=== PATIENT | male | born 1985 | race Caucasian/White ===

== ENCOUNTER 2019-08-01 21:53 | Emergency (ER) | payer OTHER, SELFPAY ==
[2019-08-01] MEDS ORDERED: LORazepam 2 MG/ML VIAL ONE (22:20)
--- NOTE | 2019-08-01 23:48 | ER ---
Nurse's Notes [facility] Name: Fahad Tenorio Age: 33 yrs Sex: Male : 1985 Arrival Date: 08/01/2019 Time: 21:56 Bed 13 Private MD: Diagnosis: Panic disorder [episodic paroxysmal anxiety] without agoraphobia Presentation: 08/01 22:14 Presenting complaint: Patient states: he is having symptoms like a panic attack but bb much worse this time his face feels like it is burning up but he is freezing cold, he has to concentrated to make himself breath, his tongue is numb. Transition of care: patient was not received from another setting of care. Onset of symptoms was August 01, 2019. Risk Assessment: Do you want to hurt yourself or someone else? Patient reports no desire to harm self or others. Initial Sepsis Screen: Does the patient meet any 2 criteria? No. Patient's initial sepsis screen is negative. Does the patient have a suspected source of infection? No. Patient's initial sepsis screen is negative. Care prior to arrival: None. 22:14 Method Of Arrival: Ambulatory bb 22:14 Acuity: JONATHAN 4 bb Historical: - Allergies: 22:17 No Known Allergies; bb - Home Meds: 22:17 Xanax Oral [Active]; Prilosec Oral [Active]; bb - PMHx: 22:17 Anxiety; GERD; bb - PSHx: 22:17 bilateral breast reduction; bb - Immunization history:: Adult Immunizations up to date. - Social history:: Smoking status: Patient uses tobacco products, smokes one pack cigarettes per day. Patient uses alcohol, on a daily basis. Patient/guardian denies using street drugs. - Ebola Screening: : No symptoms or risks identified at this time. Screenin:05 Abuse screen:. Nutritional screening: No deficits noted. Tuberculosis screening: No aa1 symptoms or risk factors identified. Fall Risk None identified. Assessment: 22:05 General: Appears in no apparent distress. comfortable, Behavior is calm, cooperative, aa1 appropriate for age. Pain: Denies pain. Neuro: Level of Consciousness is awake, alert, obeys commands, Oriented to person, place, time, situation, Moves all extremities. Full function Gait is steady, Speech is normal. Neuro: Reports numbness in lips. Cardiovascular: Heart tones S1 S2 present Rhythm is regular. Respiratory: Airway is patent Respiratory effort is even, unlabored, Respiratory pattern is regular, symmetrical. GI: No signs and/or symptoms were reported involving the gastrointestinal system. : No signs and/or symptoms were reported regarding the genitourinary system. EENT: No signs and/or symptoms were reported regarding the EENT system. Derm: Skin is intact, is healthy with good turgor, Skin is pink, warm \T\ dry. Musculoskeletal: Circulation, motion, and sensation intact. Capillary refill < 3 seconds. 23:58 Reassessment: Patient appears in no apparent distress at this time. Patient is alert, aa1 oriented x 3, equal unlabored respirations, skin warm/dry/pink. Discussed d/c \T\ f/u instructions with pt; denies questions or concerns at this time. Ambulatory to lobby with steady gait Patient denies pain at this time. Patient states feeling better. Patient states symptoms have improved. Vital Signs: 22:07 BP 149 / 100; Pulse 124; Resp 14; Temp 98.1(O); Pulse Ox 97% ; lt1 22:47 BP 129 / 84; Pulse 103; Resp 14; Pulse Ox 95% on R/A; Pain 0/10; aa1 23:58 BP 140 / 82; Pulse 98; Resp 16; Pulse Ox 96% on R/A; Pain 0/10; aa1 ED Course: 21:56 Patient arrived in ED. cf2 22:03 Neva Boogie, RN is Primary Nurse. aa1 22:05 Patient has correct armband on for positive identification. Bed in low position. Call aa1 light in reach. Pulse ox on. NIBP on. 22:13 Doe Hay PA is PHCP. jr8 22:13 Mathew Licea MD is Attending Physician. jr8 22:15 EKG done, by ED staff, reviewed by Doe DE LA TORRE. aa1 22:16 Triage completed. bb 22:17 Arm band placed on Patient placed in an exam room, on a stretcher, on pulse oximetry. bb 23:58 No provider procedures requiring assistance completed. Patient did not have IV access aa1 during this emergency room visit. 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 liz 23:58 Discharged to home ambulatory. aa1 23:58 Condition: good 23:58 Discharge instructions given to patient, Instructed on discharge instructions, follow up and referral plans. medication usage, Demonstrated understanding of instructions, follow-up care, medications, Prescriptions given X 1. 08/02 00:01 Patient left the ED. aa1 Signatures: Neva Boogie RN RN aa1 Kalyn Hernandez RN RN bb Roszak, Josh, PA PA jr8 Radha Cunningham 1 Enrique Cohen 2
--- NOTE | 2019-08-01 23:48 | EDPHYS ---
Physician Documentation [facility] Name: Fahad Tenorio Age: 33 yrs Sex: Male : 1985 Arrival Date: 08/01/2019 Time: 21:56 Bed 13 Private MD: ED Physician Mathew Licea HPI: 08/01 23:50 This 33 yrs old Male presents to ER via Ambulatory with complaints of jr8 Numbness Of Mouth, Possible Panick attack, Metal taste in mouth. 23:50 The patient presents to the emergency department with anxiety. Onset: The jr8 symptoms/episode began/occurred acutely, today. Past psychiatric history: Prior diagnosis: anxiety, Psychiatric medications include: Xanax. Associated signs and symptoms: The patient has no apparent associated signs or symptoms. Severity of symptoms: At their worst the symptoms were moderate in the emergency department the symptoms are unchanged. The patient has experienced similar episodes in the past, multiple times, chronically. The patient has not recently seen a physician. Patient stated that he use to chronically use marajuana. Stated that he stopped several years ago but developed panic attacks shortly after. Since then has had chronic anxiety and panic attacks. Self medicates with alcohol and occasionally xanax that is prescribed to him. Stated that he got one tonight that was a lot worse then normal. Took a total of 2 mg of xanax. Feeling better now but wanted to make sure he was ok . Historical: - Allergies: 22:17 No Known Allergies; bb - Home Meds: 22:17 Xanax Oral [Active]; Prilosec Oral [Active]; bb - PMHx: 22:17 Anxiety; GERD; bb - PSHx: 22:17 bilateral breast reduction; bb - Immunization history:: Adult Immunizations up to date. - Social history:: Smoking status: Patient uses tobacco products, smokes one pack cigarettes per day. Patient uses alcohol, on a daily basis. Patient/guardian denies using street drugs. - Ebola Screening: : No symptoms or risks identified at this time. ROS: 23:50 Eyes: Negative for injury, pain, redness, and discharge, ENT: Negative for injury, jr8 pain, and discharge, Neck: Negative for injury, pain, and swelling, Cardiovascular: Negative for chest pain, palpitations, and edema, Respiratory: Negative for shortness of breath, cough, wheezing, and pleuritic chest pain, Abdomen/GI: Negative for abdominal pain, nausea, vomiting, diarrhea, and constipation, Back: Negative for injury and pain, MS/Extremity: Negative for injury and deformity, Skin: Negative for injury, rash, and discoloration, Neuro: Negative for headache, weakness, numbness, tingling, and seizure. 23:50 Psych: Positive for anxiety. Exam: 23:50 Eyes: Pupils equal round and reactive to light, extra-ocular motions intact. Lids and jr8 lashes normal. Conjunctiva and sclera are non-icteric and not injected. Cornea within normal limits. Periorbital areas with no swelling, redness, or edema. ENT: Nares patent. No nasal discharge, no septal abnormalities noted. Tympanic membranes are normal and external auditory canals are clear. Oropharynx with no redness, swelling, or masses, exudates, or evidence of obstruction, uvula midline. Mucous membranes moist. Neck: Trachea midline, no thyromegaly or masses palpated, and no cervical lymphadenopathy. Supple, full range of motion without nuchal rigidity, or vertebral point tenderness. No Meningismus. Cardiovascular: Sinus tachycardia with a normal rhythm with a normal S1 and S2. No gallops, murmurs, or rubs. Normal PMI, no JVD. No pulse deficits. Respiratory: Lungs have equal breath sounds bilaterally, clear to auscultation and percussion. No rales, rhonchi or wheezes noted. No increased work of breathing, no retractions or nasal flaring. Abdomen/GI: Soft, non-tender, with normal bowel sounds. No distension or tympany. No guarding or rebound. No evidence of tenderness throughout. Back: No spinal tenderness. No costovertebral tenderness. Full range of motion. Skin: Warm, dry with normal turgor. Normal color with no rashes, no lesions, and no evidence of cellulitis. MS/ Extremity: Pulses equal, no cyanosis. Neurovascular intact. Full, normal range of motion. Neuro: Awake and alert, GCS 15, oriented to person, place, time, and situation. Cranial nerves II-XII grossly intact. Motor strength 5/5 in all extremities. Sensory grossly intact. Cerebellar exam normal. Normal gait. Psych: Awake, alert, with orientation to person, place and time. Behavior, mood, and affect are within normal limits. Vital Signs: 22:07 BP 149 / 100; Pulse 124; Resp 14; Temp 98.1(O); Pulse Ox 97% ; lt1 22:47 BP 129 / 84; Pulse 103; Resp 14; Pulse Ox 95% on R/A; Pain 0/10; aa1 23:58 BP 140 / 82; Pulse 98; Resp 16; Pulse Ox 96% on R/A; Pain 0/10; aa1 MDM: 22:14 Patient medically screened. jr8 23:46 Data reviewed: vital signs, nurses notes, EKG, and as a result, I will discharge jr8 patient. Data interpreted: Pulse oximetry: on room air is 95 %. Interpretation: normal. Counseling: I had a detailed discussion with the patient and/or guardian regarding: the historical points, exam findings, and any diagnostic results supporting the discharge/admit diagnosis, the need for outpatient follow up, a family practitioner, to return to the emergency department if symptoms worsen or persist or if there are any questions or concerns that arise at home. Response to treatment: the patient's symptoms have resolved after treatment. 23:46 ED course: Patient feeling much better after resting. Wants to start on new more long jr8 term medicine and would f/u with PCP . 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 Disposition: 08/01/19 23:47 Discharged to Home. Impression: Panic disorder [episodic paroxysmal anxiety] without agoraphobia. - Condition is Stable. - Discharge Instructions: Panic Attacks. - Prescriptions for Effexor XR 75 mg Oral capsule,extended release 24hr - take 1 capsule by ORAL route once daily for 7 days then increase to one capsule twice a day; 30 capsule. - Medication Reconciliation Form, Thank You Letter, Antibiotic Education, Prescription Opioid Use form. - Follow up: Private Physician; When: 2 - 3 days; Reason: Recheck today's complaints, Continuance of care, Re-evaluation by your physician. - Problem is new. - Symptoms are resolved. Signatures: Neva Boogie RN RN aa1 Kalyn Hernandez RN RN Doe Bright PA PA jr8 Mathew Licea MD MD tw4 Corrections: (The following items were deleted from the chart) 00:01 08/01 23:47 08/01/2019 23:47 Discharged to Home. Impression: Panic disorder [episodic aa1 paroxysmal anxiety] without agoraphobia. Condition is Stable. Forms are Medication Reconciliation Form, Thank You Letter, Antibiotic Education, Prescription Opioid Use. Follow up: Private Physician; When: 2 - 3 days; Reason: Recheck today's complaints, Continuance of care, Re-evaluation by your physician. Problem is new. Symptoms are resolved. jr8
[2019-08-02 02:16] VITALS: TEMP 98.1
[2019-08-02 02:19] VITALS: BP 140/82; O2SAT 96
--- OUTSIDE RECORDS SUMMARY | 2019-08-02 07:22 | XMS REPORT ---
:1985 [facility] Address [address] [place] [address] Dr. Nath [address] [place] [id number] Care Team Providers Name Role Phone Unavailable Unavailable Unavailable Problems This patient has no known problems. Allergies, Adverse Reactions, Alerts This patient has no known allergies or adverse reactions. Medications This patient has no known medications.
--- NOTE | 2019-08-02 15:55 | EKG ---
Test Date: 2019-08-01 Test Time: 22:22:19 Instant Potato Processing Supervisor: MAISHA MEASUREMENT RESULTS: Intervals: Rate: 109 TX: 140 QRSD: 80 QT: 312 QTc: 420 Benton: P: 63 TX: 140 QRS: 88 T: 41 INTERPRETIVE STATEMENTS: Sinus tachycardia Otherwise normal ECG Compared to ECG 02/06/2012 01:32:34 No significant changes Electronically Signed On 08-02-19 15:54:24 PET CARE TECHNICIAN by Darren English
== END 2019-08-02 00:01 | disposition home or self-care (01) ==
LOC: ER 21:53
DX: F41.0 Panic disorder [episodic paroxysmal anxiety] (principal); K21.9 Gastro-esophageal reflux disease without esophagitis; F17.210 Nicotine dependence, cigarettes, uncomplicated
CPT/HCPCS: 93005; 99283

== ENCOUNTER 2019-10-21 17:21 | Emergency (ER) | payer SELFPAY ==
--- OUTSIDE RECORDS SUMMARY | 2019-10-21 17:23 | XMS REPORT ---
:1985 [facility] Address [address] [place] [address] Dr. Nath [address] [place] [id number] Care Team Providers Name Role Phone Unavailable Unavailable Unavailable Problems This patient has no known problems. Allergies, Adverse Reactions, Alerts This patient has no known allergies or adverse reactions. Medications This patient has no known medications.
--- NOTE | 2019-10-21 18:44 | EDPHYS ---
Physician Documentation [facility] Name: Fahad Tenorio Age: 34 yrs Sex: Male : 1985 Arrival Date: 10/21/2019 Time: 17:22 Bed 28 Private MD: ED Physician Cordell Lance HPI: 10/21 18:38 This 34 yrs old Male presents to ER via Ambulatory with complaints of Finger la1 Injury. 18:38 This 34 yrs old Male presents to ER via Ambulatory with complaints of Finger la1 Injury. 18:38 The patient or guardian reports subungal hematoma. The complaints affect the right la1 middle fingernail. Context: resulted from a crush injury, by a house door. Onset: The symptoms/episode began/occurred last night. Modifying factors: The symptoms are alleviated by nothing, the symptoms are aggravated by nothing. Associated signs and symptoms: The patient has no apparent associated signs or symptoms. Severity of symptoms: At their worst the symptoms were mild. The patient has not experienced similar symptoms in the past. Historical: - Allergies: 17:36 No Known Allergies; ca1 - PMHx: 17:36 Anxiety; GERD; ca1 - PSHx: 17:36 bilateral breast reduction - Tumors removed; ca1 - Immunization history:: Adult Immunizations up to date, Last tetanus immunization: unknown, Flu vaccine is not up to date. Patient has never been vaccinated. Flu vaccine is not up to date. Patient has never been vaccinated. - Coronavirus screen:: The patient has NOT traveled to [place], [place], or [place] in the past 14 days. The patient has NOT had contact with known/suspected case of Coronavirus?. - Social history:: Smoking status: Patient reports the use of cigarette tobacco products, smokes two packs cigarettes per day. Smoking status: Patient reports the use of cigarette tobacco products, smokes one-half pack cigarettes per day, smokes one pack cigarettes per day. - Ebola Screening: : Patient negative for fever greater than or equal to 101.5 degrees Fahrenheit, and additional compatible Ebola Virus Disease symptoms Patient denies exposure to infectious person Patient denies travel to an Ebola-affected area in the 21 days before illness onset No symptoms or risks identified at this time. ROS: 18:39 Constitutional: Negative for fever, chills, and weight loss, Eyes: Negative for injury, la1 pain, redness, and discharge, ENT: Negative for injury, pain, and discharge, Neck: Negative for injury, pain, and swelling, Cardiovascular: Negative for chest pain, palpitations, and edema, Respiratory: Negative for shortness of breath, cough, wheezing, and pleuritic chest pain, Abdomen/GI: Negative for abdominal pain, nausea, vomiting, diarrhea, and constipation, Back: Negative for injury and pain, MS/Extremity: + for pain to right middle finger Skin: Negative for injury, rash, and discoloration. Exam: 18:40 Constitutional: This is a well developed, well nourished patient who is awake, alert, la1 and in no acute distress. Head/Face: Normocephalic, atraumatic. ENT: Mucous membranes moist. Neck: Trachea midline, no thyromegaly or masses palpated, and no cervical lymphadenopathy. Supple, full range of motion without nuchal rigidity, or vertebral point tenderness. No Meningismus. Chest/axilla: Normal chest wall appearance and motion. Nontender with no deformity. No lesions are appreciated. Cardiovascular: Regular rate and rhythm with a normal S1 and S2. Respiratory: Lungs have equal breath sounds bilaterally, clear to auscultation Abdomen/GI: Soft, non-tender, with normal bowel sounds. Back: No spinal tenderness. Skin: Warm, dry with normal turgor. Normal color with no rashes, no lesions, and no evidence of cellulitis. MS/ Extremity: Pulses equal, no cyanosis. Neurovascular intact. Full, normal range of motion. about 50% subungal hematoma to right third finger Vital Signs: 17:36 BP 121 / 91; Pulse 82; Resp 17 S; Temp 97.9(O); Pulse Ox 98% on R/A; Weight 83.91 kg ca1 (R); Height 5 ft. 9 in. (175.26 cm) (R); Pain 7/10; 17:36 Body Mass Index 27.32 (83.91 kg, 175.26 cm) ca1 Procedures: 17:49 Performed trephination of right 3rd digit subungal hematoma, performed with la1 electrocautery. pt tolerated well. . MDM: 17:38 Patient medically screened. la1 18:41 Data reviewed: vital signs, nurses notes, radiologic studies, and as a result, I will la1 discharge patient. Data interpreted: Pulse oximetry: on room air is 100 %. Interpretation: normal. Counseling: I had a detailed discussion with the patient and/or guardian regarding: the historical points, exam findings, and any diagnostic results supporting the discharge/admit diagnosis, radiology results, the need for outpatient follow up, a family practitioner. 10/21 17:38 Order name: Hand Right 3 View XRAY la1 Administered Medications: No medications were administered Disposition: 18:57 Co-signature as Attending Physician, Cordell Lance MD. rn Disposition: 10/21/19 18:42 Discharged to Home. Impression: Subungual Hematoma. - Condition is Stable. - Discharge Instructions: Subungual Hematoma, Subungual Hematoma, [id number]. - Medication Reconciliation Form, Thank You Letter form. - Follow up: Private Physician; When: As needed. - Problem is new. - Symptoms have improved. Signatures: Dispatcher [employer] EDMS Cordell Lance MD MD rn Milo Delarosa, EVALUATION ASSISTANT-C EVALUATION ASSISTANT-Cla1 Briana Travis RN RN [facility] Isidra English RN RN Corrections: (The following items were deleted from the chart) 18:43 18:42 10/21/2019 18:42 Discharged to Home. Impression: Subungal Hematoma- right third la1 digit. Condition is Stable. Forms are Medication Reconciliation Form, Thank You Letter, Antibiotic Education, Prescription Opioid Use. Follow up: Private Physician; When: As needed. Problem is new. Symptoms have improved. la1 18:51 18:43 10/21/2019 18:42 Discharged to Home. Impression: Subungual Hematoma. Condition is ah Stable. Discharge Instructions: Subungual Hematoma, Subungual Hematoma, [id number]. Forms are Medication Reconciliation Form, Thank You Letter. Follow up: Private Physician; When: As needed. Problem is new. Symptoms have improved. la1
--- NOTE | 2019-10-21 18:44 | ER ---
Nurse's Notes [facility] Name: Fahad Tenorio Age: 34 yrs Sex: Male : 1985 Arrival Date: 10/21/2019 Time: 17:22 Bed 28 Private MD: Diagnosis: Subungual Hematoma Presentation: 10/21 17:33 Presenting complaint: Patient states: smashed R middle finger yesterday with my house ca1 door. C/O shooting pain and swelling. Bruise noted under the nail. Transition of care: patient was not received from another setting of care. Onset of symptoms was October 21, 2019. Risk Assessment: Do you want to hurt yourself or someone else? Patient reports no desire to harm self or others. Initial Sepsis Screen: Does the patient meet any 2 criteria? No. Patient's initial sepsis screen is negative. Does the patient have a suspected source of infection? No. Patient's initial sepsis screen is negative. Care prior to arrival: None. 17:33 Method Of Arrival: Ambulatory ca1 17:33 Acuity: JONATHAN 4 ca1 Triage Assessment: 17:51 General: Appears Behavior is calm, cooperative, appropriate for age. ah Historical: - Allergies: 17:36 No Known Allergies; ca1 - PMHx: 17:36 Anxiety; GERD; ca1 - PSHx: 17:36 bilateral breast reduction - Tumors removed; ca1 - Immunization history:: Adult Immunizations up to date, Last tetanus immunization: unknown, Flu vaccine is not up to date. Patient has never been vaccinated. Flu vaccine is not up to date. Patient has never been vaccinated. - Coronavirus screen:: The patient has NOT traveled to [place], [place], or [place] in the past 14 days. The patient has NOT had contact with known/suspected case of Coronavirus?. - Social history:: Smoking status: Patient reports the use of cigarette tobacco products, smokes two packs cigarettes per day. Smoking status: Patient reports the use of cigarette tobacco products, smokes one-half pack cigarettes per day, smokes one pack cigarettes per day. - Ebola Screening: : Patient negative for fever greater than or equal to 101.5 degrees Fahrenheit, and additional compatible Ebola Virus Disease symptoms Patient denies exposure to infectious person Patient denies travel to an Ebola-affected area in the 21 days before illness onset No symptoms or risks identified at this time. Screenin:51 Abuse screen: Denies threats or abuse. Nutritional screening: No deficits noted. Tuberculosis screening: No symptoms or risk factors identified. Fall Risk None identified. Assessment: 17:48 Pain: Complains of pain in right middle fingernail Pain radiates to right arm Pain ah currently is 7 out of 10 on a pain scale. Quality of pain is described as pressure, Pain began 1 day ago. Is continuous, Alleviated by nothing. Aggravated by repositioning. Neuro: Level of Consciousness is awake, alert, obeys commands, Oriented to person, place, time, situation. Cardiovascular: No deficits noted. Musculoskeletal: Reports pain in right middle fingernail. Injury Description: Crush injury sustained to right middle fingernail is Pt states that he smashed his right middle finger in the door last night. 18:50 Reassessment: Patient appears in no apparent distress at this time. Patient and/or family updated on plan of care and expected duration. Pain level reassessed. Patient is alert, oriented x 3, equal unlabored respirations, skin warm/dry/pink. Patient states feeling better. Patient states symptoms have improved. Pain: Pain currently is 4 out of 10 on a pain scale. Vital Signs: 17:36 BP 121 / 91; Pulse 82; Resp 17 S; Temp 97.9(O); Pulse Ox 98% on R/A; Weight 83.91 kg ca1 (R); Height 5 ft. 9 in. (175.26 cm) (R); Pain 7/10; 17:36 Body Mass Index 27.32 (83.91 kg, 175.26 cm) ca1 ED Course: 17:22 Patient arrived in ED. as 17:25 Milo Delarosa FNP-C is [facility]. la1 17:25 Cordell Lance MD is Attending Physician. la1 17:34 Triage completed. ca1 17:36 Arm band placed on right wrist. ca1 17:44 Isidra English, RN is Primary Nurse. 17:45 Assist provider with nail repair of subungual hematoma of right middle finger using cautery device Performed by Milo LOBO Patient tolerated well. 17:48 ED physician to see patient. 17:51 Patient has correct armband on for positive identification. Bed in low position. Call light in reach. Adult w/ patient. 18:09 Awaiting for x-ray. 18:14 X-ray(s) taken. 18:37 Hand Right 3 View XRAY In Process Unspecified. EDMS 18:50 Patient did not have IV access during this emergency room visit. Administered Medications: No medications were administered Outcome: 18:42 Discharge ordered by . laLuis 18:49 Discharged to home ambulatory. 18:49 Condition: stable 18:49 Discharge instructions given to patient, family, Instructed on discharge instructions, wound care, Demonstrated understanding of instructions, wound care. 18:51 Patient left the ED. Signatures: Dispatcher [employer] EDTX Catrachita Prather, RN RN Alexandra Cheney Lee, RAIL SIGNAL WORKER-C RAIL SIGNAL WORKER-Cla1 Briana Travis RN Isidra Mason RN RN
--- NOTE | 2019-10-21 19:12 | RAD REPORT ---
EXAM DESCRIPTION: RAD - Hand Right 3 View - 10/21/2019 6:37 pm CLINICAL HISTORY: PAIN, blunt force trauma right middle finger COMPARISON: No comparisons FINDINGS: No fracture is identified. There is no dislocation or periosteal reaction noted. No forei gn body or air in the soft tissues. Third digit soft tissue swelling present. IMPRESSION: No fracture. No acute bone or joint finding.
[2019-10-21 21:38] VITALS: BP 121/91; TEMP 97.9; O2SAT 98
== END 2019-10-21 18:51 | disposition home or self-care (01) ==
LOC: ER 17:21
PROC: 0H9QXZZ Drainage of Finger Nail, External Approach (ICD-10-PCS; principal; 2019-10-21)
DX: S60.131A Contusion of right middle finger with damage to nail, initial encounter (principal); W23.0XXA Caught, crushed, jammed, or pinched between moving objects, initial encounter; Y93.9 Activity, unspecified; Y92.019 Unspecified place in single-family (private) house as the place of occurrence of the external cause
CPT/HCPCS: 99283

== ENCOUNTER 2020-05-19 18:13 | Emergency (ER) | payer SELFPAY ==
--- OUTSIDE RECORDS SUMMARY | 2020-05-19 18:15 | XMS REPORT | Continuity of Care Document ---
:1985 Author Organization Formerly [facility] t Address [address] [place] [address] Dr. Nath [address] [place] [id number] Care Team Providers Name Role Phone Unavailable Unavailable Unavailable Problems This patient has no known problems. Allergies, Adverse Reactions, Alerts This patient has no known allergies or adverse reactions. Medications This patient has no known medications. Procedures This patient has no known procedures. Results This patient has no known results.
[2020-05-19 18:41] LABS: Absolute Lymphocytes (CBC) 2.3 K/uL (0.7-4.9); Basophils % 0.8 % (0-1.3); Hematocrit 44.3 % (39.6-49.0); Lymphocytes % 29.5 % (15.3-44.8); MPV 9.3 fL (7.6-11.3); RBC Red Blood Cell Count 4.64 M/uL (4.33-5.43)
[2020-05-19 18:59] LABS: BUN Blood Urea Nitrogen 11 mg/dL (7-18); Bicarbonate 25 mmol/L (21-32); Glucose Level 104 mg/dL (74-106); Sodium Level 139 mmol/L (136-145)
[2020-05-19 19:01] LABS: Potassium 3.9 mmol/L (3.5-5.1)
--- NOTE | 2020-05-19 19:01 | RAD REPORT ---
EXAM DESCRIPTION: CT - CTHCSPWOC - 05/19/2020 6:48 pm CLINICAL HISTORY: Trauma, head and neck injury. fall from standing;Pain COMPARISON: SOFT TISSUE NECK W CONTRAST dated 10/17/2011 TECHNIQUE: Axial 5 mm thick images of the head were obtained. Axial 2 mm thick images of the cervical spine were obtained with sagittal and coronal reconstruction images generated and reviewed. All CT scans are performed using dose optimization technique as appropriate and may include automated exposure control or mA/KV adjustment according to patient size. FINDINGS: CT HEAD WITHOUT CONTRAST: There is mild motion degradation present, degrading image quality. No gross acute hemorrhage, hydroce phalus or extra-axial collection is identified.No gross areas of brain edema or midline shift. The paranasal sinuses and mastoids are clear.The calvarium is intact. CT CERVICAL SPINE WITHOUT CONTRAST: There is mild motion degradation present, degrading image quality. No gross fracture or subluxation.N o prevertebral soft tissues swelling is identified. IMPRESSION: No gross acute intracranial or cervical spine findings. Mild limitation from motion artifact is present.
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
[2020-05-23 15:39] VITALS: BP 147/97; TEMP 97.8; O2SAT 100
== END 2020-05-19 19:23 | disposition home or self-care (01) ==
LOC: ER 18:13
DX: S00.90XA Unspecified superficial injury of unspecified part of head, initial encounter (principal); F10.129 Alcohol abuse with intoxication, unspecified; F41.9 Anxiety disorder, unspecified; W01.0XXA Fall on same level from slipping, tripping and stumbling without subsequent striking against object, initial encounter; Y93.9 Activity, unspecified; Y92.149 Unspecified place in prison as the place of occurrence of the external cause
CPT/HCPCS: 36415; 70450; 72125; 80048; 80320; 85025; 99285

== ENCOUNTER 2020-10-13 16:17 | Emergency (ER) | payer SELFPAY ==
[2020-10-13 17:08] LABS: Basophils % 0.5 % (0-1.3); Hematocrit 45.6 % (39.6-49.0); Lymphocytes % 25.4 % (15.3-44.8); MPV 9.5 fL (7.6-11.3); RBC Red Blood Cell Count 4.77 M/uL (4.33-5.43)
--- NOTE | 2020-10-13 17:08 | RAD REPORT ---
EXAM DESCRIPTION: CT - CTHCSPWOC - 10/13/2020 4:42 pm CLINICAL HISTORY: trauma, transient alteration of awareness, possible loss of consciousness COMPARISON: No comparisons TECHNIQUE: Axial 5 mm thick images of the head were obtained. Axial 2 mm thick images of the cervic al spine were obtained with sagittal and coronal reconstruction images generated and reviewed. All CT scans are performed using dose optimization technique as appropriate and may include automated exposure control or mA/KV adjustment according to patient size. FINDINGS: No epidural or subdural hematoma confirmed. Increased density along the right side of the tentorium is believed to be the affects of motion which degrades this examination particularly in the posterior fossa. No subarachnoid hemorrhage identified. No mass, edema or shift of midline structure s. No suspicion for acute infarction. No extra-axial fluid collections. Mastoid air cells and paranas al sinuses are clear. No globe or orbit abnormality seen. Cervical bodies are normal in height. No subluxation abnormality. Patient has accentuated cervical lo rdosis left convex curvature is also present. No disk space narrowing. No fracture or acute bony abno rmality. Central canal detail is inherently limited. No paraspinal mass or hematoma. IMPRESSION: Motion degraded study shows no hemorrhage, mass, edema or acute intracranial finding. Negative CT cervical spine examination for acute or significant finding. Cervicothoracic scoliosis c hanges are evident only partially imaged.
[2020-10-13 17:14] LABS: Protime INR 0.93
[2020-10-13 17:25] LABS: Barbiturates NEGATIVE (NEGATIVE); Benzodiazepines NEGATIVE (NEGATIVE); Cocaine NEGATIVE (NEGATIVE); METHAMPHETAM NEGATIVE (NEGATIVE); Methadone NEGATIVE (NEGATIVE); Opiates NEGATIVE (NEGATIVE); Phencyclidine NEGATIVE (NEGATIVE); THC Cannibis NEGATIVE (NEGATIVE)
[2020-10-13 17:43] LABS: ALT/SGPT 40 U/L (12-78); AST/SGOT 25 U/L (15-37); Albumin 4.1 g/dL (3.4-5.0); Alkaline Phosphatase 92 U/L (45-117); BUN Blood Urea Nitrogen 12 mg/dL (7-18); Bicarbonate 26 mmol/L (21-32); Bilirubin Direct < 0.1 mg/dL (0-0.2); Bilirubin Total 0.4 mg/dL (0.2-1.0); Glucose Level 94 mg/dL (74-106); Potassium 3.7 mmol/L (3.5-5.1); Protein, Total 7.9 g/dL (6.4-8.2); Sodium Level 136 mmol/L (136-145)
[2020-10-13 18:02] LABS: Urine Blood 3+ (NEG); Urine Glucose NEGATIVE (NEG); Urine Protein NEGATIVE (NEG)
[2020-10-13] MEDS ORDERED: NA CHLORIDE 0.9% 1,000 ML ONE ×2 (18:06→18:18)
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
[2020-10-13 18:45] VITALS: TEMP 97.9
[2020-10-13 18:49] VITALS: BP 130/94; O2SAT 99
== END 2020-10-13 18:40 ==
LOC: EDBD 16:17 → MERGE 16:17 → ER 16:17
DX: S00.90XA Unspecified superficial injury of unspecified part of head, initial encounter (principal); F10.129 Alcohol abuse with intoxication, unspecified; R04.0 Epistaxis; W22.8XXA Striking against or struck by other objects, initial encounter; Y93.89 Activity, other specified; Y92.149 Unspecified place in prison as the place of occurrence of the external cause
CPT/HCPCS: 36415; 51702; 70450; 72125; 80048; 80076; 80307; 80320; 80329; 81003; 85025; 85610; 85730; 93005; 96372; 96374; 99285; J7030

== ENCOUNTER 2020-12-04 07:34 | Emergency (ER) | payer SELFPAY ==
--- OUTSIDE RECORDS SUMMARY | 2020-12-04 07:36 | XMS REPORT | Continuity of Care Document ---
:1985 Author Organization [facility] t Address [address] [place] [address] Dr. Nath [address] [place] [id number] Care Team Providers Name Role Phone Unavailable Unavailable Unavailable Problems This patient has no known problems. Allergies, Adverse Reactions, Alerts This patient has no known allergies or adverse reactions. Medications This patient has no known medications. Procedures This patient has no known procedures. Results This patient has no known results.
--- NOTE | 2020-12-04 08:25 | ER ---
Nurse's Notes [facility] Name: Fahad Tenorio Age: 35 yrs Sex: Male : 1985 Arrival Date: 12/04/2020 Time: 07:37 Bed 15 Private MD: Iraj Drummond T Diagnosis: Mallet finger of right finger(s)-right index Presentation: 12/04 07:52 Chief complaint: Patient states: injured right index finger yesterday while washing his iw car, now has swelling and can't move it, needs to be cleared for work. Coronavirus screen: At this time, the client does not indicate any symptoms associated with coronavirus-19. Ebola Screen: Patient negative for fever greater than or equal to 101.5 degrees Fahrenheit, and additional compatible Ebola Virus Disease symptoms Patient denies exposure to infectious person. Patient denies travel to an Ebola-affected area in the 21 days before illness onset. No symptoms or risks identified at this time. Initial Sepsis Screen: Does the patient meet any 2 criteria? No. Patient's initial sepsis screen is negative. Does the patient have a suspected source of infection? No. Patient's initial sepsis screen is negative. Risk Assessment: Do you want to hurt yourself or someone else? Patient reports no desire to harm self or others. Onset of symptoms was December 03, 2020. 07:52 Method Of Arrival: Ambulatory iw 07:52 Acuity: JONATHAN 4 iw Triage Assessment: 08:00 General: Appears in no apparent distress. uncomfortable, Behavior is calm, cooperative, bp appropriate for age. Pain: Complains of pain in DIP of right index finger. EENT: No deficits noted. Neuro: No deficits noted. Cardiovascular: No deficits noted. Respiratory: No deficits noted. GI: No signs and/or symptoms were reported involving the gastrointestinal system. : No signs and/or symptoms were reported regarding the genitourinary system. Derm: No deficits noted. Musculoskeletal: Swelling present in DIP of right index finger. Historical: - Allergies: 07:55 NKA; iw - Home Meds: 07:55 Omeprazole Oral once daily [Active]; venlafaxine oral oral once daily [Active]; Xanax iw Oral as needed [Active]; - PMHx: 07:55 Anxiety; GERD; iw - Immunization history:: Adult Immunizations not up to date. - Social history:: Smoking status: Patient reports the use of cigarette tobacco products, smokes one pack cigarettes per day. - Family history:: not pertinent. Screenin:30 Abuse screen: Denies threats or abuse. Denies injuries from another. Nutritional bp screening: No deficits noted. Tuberculosis screening: No symptoms or risk factors identified. Fall Risk None identified. Assessment: 08:00 General: SEE TRIAGE NOTE. bp 08:30 Reassessment: D/C ON HOLD FOR XRAY AND SPLINT. bp 09:18 Reassessment: PT D/C HOME AMBULATORY, DX WITH MALLET FINGER. jd3 Vital Signs: 07:52 BP 139 / 104; Pulse 94; Resp 16; Temp 98.0; Pulse Ox 98% on R/A; Weight 81.65 kg; iw Height 5 ft. 9 in. (175.26 cm); 09:18 BP 135 / 95; Pulse 76; Resp 17; Pulse Ox 100% ; jd3 07:52 Body Mass Index 26.58 (81.65 kg, 175.26 cm) iw ED Course: 07:37 Patient arrived in ED. mr 07:38 Iraj Drummond MD is Private Physician. mr 07:51 Vitaly Velasco MD is Attending Physician. brandin 07:53 Eleno Vitale, JOSEPH is Primary Nurse. bp 07:54 Triage completed. iw 08:00 Arm band placed on. bp 08:23 Aluminum finger splint applied to. mh5 08:25 Iraj Drummond MD is Referral Physician. brandin 08:25 John Yepez MD is Referral Physician. brandin 08:30 Patient has correct armband on for positive identification. Bed in low position. Call bp light in reach. Side rails up X2. 08:45 Hand Right 3 View XRAY In Process Unspecified. EDMS 09:18 No provider procedures requiring assistance completed. Patient did not have IV access jd3 during this emergency room visit. Administered Medications: No medications were administered Outcome: 08:25 Discharge ordered by . brandin 09:18 Discharged to home ambulatory, with family. jd3 09:18 Condition: stable 09:18 Discharge instructions given to patient, Instructed on discharge instructions, follow up and referral plans. Demonstrated understanding of instructions, follow-up care, medications, splint care, Prescriptions given X 1. 09:19 Patient left the ED. jd3 Signatures: Dispatcher [employer] Vitaly Suarez MD MD cha Rivera, Marcia mr Jodi Hickman, Sendy Pleitez RN Wilfrido Shukla RN RN jd3 Peltier, Brian, RN RN bp
--- NOTE | 2020-12-04 08:25 | EDPHYS ---
Physician Documentation [facility] Name: Fahad Tenorio Age: 35 yrs Sex: Male : 1985 Arrival Date: 12/04/2020 Time: 07:37 Bed 15 Private MD: Iraj Drummond T ED Physician Vitaly Velasco HPI: 12/04 08:16 This 35 yrs old Male presents to ER via Ambulatory with complaints of Finger brandin Swelling. 08:16 The patient or guardian reports decreased range of motion, pain. The complaints affect brandin the DIP of right index finger. Context: The problem was sustained at home, resulted from a direct blow. Onset: The symptoms/episode began/occurred yesterday. Modifying factors: The symptoms are alleviated by elevation, holding still, splinting, the symptoms are aggravated by movement. Associated signs and symptoms: The patient has no apparent associated signs or symptoms. Severity of symptoms: At their worst the symptoms were moderate, in the emergency department the symptoms are unchanged. The patient has not experienced similar symptoms in the past. Historical: - Allergies: 07:55 NKA; iw - Home Meds: 07:55 Omeprazole Oral once daily [Active]; venlafaxine oral oral once daily [Active]; Xanax iw Oral as needed [Active]; - PMHx: 07:55 Anxiety; GERD; iw - Immunization history:: Adult Immunizations not up to date. - Social history:: Smoking status: Patient reports the use of cigarette tobacco products, smokes one pack cigarettes per day. - Family history:: not pertinent. ROS: 08:16 Constitutional: Negative for fever, chills, and weight loss, Eyes: Negative for injury, brandin pain, redness, and discharge, ENT: Negative for injury, pain, and discharge, Neck: Negative for injury, pain, and swelling, Cardiovascular: Negative for chest pain, palpitations, and edema, Respiratory: Negative for shortness of breath, cough, wheezing, and pleuritic chest pain, Abdomen/GI: Negative for abdominal pain, nausea, vomiting, diarrhea, and constipation, Back: Negative for injury and pain, : Negative for injury, bleeding, discharge, and swelling, Skin: Negative for injury, rash, and discoloration, Neuro: Negative for headache, weakness, numbness, tingling, and seizure, Psych: Negative for depression, anxiety, suicide ideation, homicidal ideation, and hallucinations, Allergy/Immunology: Negative for hives, rash, and allergies, Endocrine: Negative for neck swelling, polydipsia, polyuria, polyphagia, and marked weight changes, Hematologic/Lymphatic: Negative for swollen nodes, abnormal bleeding, and unusual bruising. 08:16 MS/extremity: Positive for injury or acute deformity, decreased range of motion, pain, tenderness, of the dorsal aspect of distal phalanx of right index finger. Exam: 08:16 Constitutional: This is a well developed, well nourished patient who is awake, alert, brandin and in no acute distress. Head/Face: Normocephalic, atraumatic. Eyes: Pupils equal round and reactive to light, extra-ocular motions intact. Lids and lashes normal. Conjunctiva and sclera are non-icteric and not injected. Cornea within normal limits. Periorbital areas with no swelling, redness, or edema. ENT: Nares patent. No nasal discharge, no septal abnormalities noted. Tympanic membranes are normal and external auditory canals are clear. Oropharynx with no redness, swelling, or masses, exudates, or evidence of obstruction, uvula midline. Mucous membranes moist. Neck: Trachea midline, no thyromegaly or masses palpated, and no cervical lymphadenopathy. Supple, full range of motion without nuchal rigidity, or vertebral point tenderness. No Meningismus. Chest/axilla: Normal chest wall appearance and motion. Nontender with no deformity. No lesions are appreciated. Cardiovascular: Regular rate and rhythm with a normal S1 and S2. No gallops, murmurs, or rubs. Normal PMI, no JVD. No pulse deficits. Respiratory: Lungs have equal breath sounds bilaterally, clear to auscultation and percussion. No rales, rhonchi or wheezes noted. No increased work of breathing, no retractions or nasal flaring. Abdomen/GI: Soft, non-tender, with normal bowel sounds. No distension or tympany. No guarding or rebound. No evidence of tenderness throughout. Back: No spinal tenderness. No costovertebral tenderness. Full range of motion. Male : Normal genitalia with no discharge or lesions. Skin: Warm, dry with normal turgor. Normal color with no rashes, no lesions, and no evidence of cellulitis. Neuro: Awake and alert, GCS 15, oriented to person, place, time, and situation. Cranial nerves II-XII grossly intact. Motor strength 5/5 in all extremities. Sensory grossly intact. Cerebellar exam normal. Normal gait. Psych: Awake, alert, with orientation to person, place and time. Behavior, mood, and affect are within normal limits. 08:16 Musculoskeletal/extremity: Extremities: grossly normal except: noted in the dorsal aspect of distal phalanx of right index finger: decreased ROM, pain. Vital Signs: 07:52 BP 139 / 104; Pulse 94; Resp 16; Temp 98.0; Pulse Ox 98% on R/A; Weight 81.65 kg; iw Height 5 ft. 9 in. (175.26 cm); 09:18 BP 135 / 95; Pulse 76; Resp 17; Pulse Ox 100% ; jd3 07:52 Body Mass Index 26.58 (81.65 kg, 175.26 cm) iw MDM: 07:51 Patient medically screened. [facility] 08:19 Differential diagnosis: closed fracture. Data reviewed: vital signs, nurses notes, [facility] radiologic studies. Data interpreted: quality assurance monitor final: not applicable for this patient encounter. rate is 94 beats/min, rhythm is regular, Pulse oximetry: on room air is 98 %. Test interpretation: by ED physician or midlevel provider: plain radiologic studies. Counseling: I had a detailed discussion with the patient and/or guardian regarding: the historical points, exam findings, and any diagnostic results supporting the discharge/admit diagnosis, lab results. 12/04 07:56 Order name: Hand Right 3 View XRAY bp 12/04 08:16 Order name: Splint - Finger: mallet finger; Complete Time: 08:23 brandin 12/04 08:16 Order name: Ice pack; Complete Time: 08:23 [facility] Administered Medications: No medications were administered Disposition: 12/04/20 08:25 Discharged to Home. Impression: Mallet finger of right finger(s) - right index. - Condition is Stable. - Discharge Instructions: Mallet Finger. - Prescriptions for Ibuprofen 600 mg Oral Tablet - take 1 tablet by ORAL route every 6 hours As needed take with food; 30 tablet. - Medication Reconciliation Form, Thank You Letter, Antibiotic Education, Prescription Opioid Use, Work release form form. - Follow up: Iraj Drummond; When: 2 - 3 days; Reason: Recheck today's complaints, Continuance of care, Re-evaluation by your physician. Follow up: John Yepez; When: 2 - 3 days; Reason: Recheck today's complaints, Continuance of care, Re-evaluation by your physician. - Problem is new. - Symptoms have improved. Signatures: Dispatcher [employer] EDVitaly Ellison MD MD cha Williams, Irene, RN RN iw Davies, Jonathon, RN RN jd3 Corrections: (The following items were deleted from the chart) 09:19 08:25 12/04/2020 08:25 Discharged to Home. Impression: Mallet finger of right finger(s) jd3 - right index. Condition is Stable. Discharge Instructions: Mallet Finger. Prescriptions for Ibuprofen 600 mg Oral Tablet - take 1 tablet by ORAL route every 6 hours As needed take with food; 30 tablet. and Forms are Medication Reconciliation Form, Thank You Letter, Antibiotic Education, Prescription Opioid Use. Follow up: Iraj Drummond; When: 2 - 3 days; Reason: Recheck today's complaints, Continuance of care, Re-evaluation by your physician. Follow up: John Yepez; When: 2 - 3 days; Reason: Recheck today's complaints, Continuance of care, Re-evaluation by your physician. Problem is new. Symptoms have improved. brandin
--- NOTE | 2020-12-04 09:28 | RAD REPORT ---
EXAM DESCRIPTION: RAD - Hand Right 3 View - 12/04/2020 8:45 am CLINICAL HISTORY: DEFORMITY, hand pain, trauma history, patient indicates injury to the right index finger with diminished range of motion COMPARISON: Hand Right 3 View dated 10/21/2019 FINDINGS: There is mild flexion at the second digit DIP joint. There is no bone avulsion or other jasmyn ne abnormality at this joint. No bone avulsion at the ventral base of the middle phalanx which has a subtle extension orientation. No acute bone or joint findings identifiable on this study. Slight soft tissue swelling seen at the base of the second digit. No foreign body. IMPRESSION: No acute bone or joint abnormality identifiable. Patient has subtle extension at the PIP joint and flexion at the DIP joint. Tendon or ligament injury is still possible.
[2020-12-04 20:05] VITALS: TEMP 98
[2020-12-04 20:09] VITALS: BP 135/95; O2SAT 100
== END 2020-12-04 09:19 | disposition home or self-care (01) ==
LOC: ER 07:34
DX: M20.011 Mallet finger of right finger(s) (principal); W22.8XXA Striking against or struck by other objects, initial encounter; Y93.89 Activity, other specified; Y92.009 Unspecified place in unspecified non-institutional (private) residence as the place of occurrence of the external cause; K21.9 Gastro-esophageal reflux disease without esophagitis; F41.9 Anxiety disorder, unspecified; F17.210 Nicotine dependence, cigarettes, uncomplicated
CPT/HCPCS: 99283

== ENCOUNTER 2022-10-28 13:25 | Emergency (ER) | payer SELFPAY ==
--- OUTSIDE RECORDS SUMMARY | 2022-10-28 13:28 | XMS REPORT | Continuity of Care Document ---
:1985 Author Organization [facility] t Address [address] [place] [address] Dr. Nath [address] [place] [id number] Care Team Providers Name Role Phone Unavailable Unavailable Unavailable Problems This patient has no known problems. Allergies, Adverse Reactions, Alerts This patient has no known allergies or adverse reactions. Medications This patient has no known medications. Procedures This patient has no known procedures. Results This patient has no known results.
[2022-10-28 14:08] LABS: Hematocrit 45.9 % (39.6-49.0); Lymphocytes % 27.4 % (15.3-44.8); MCV 91.8 fL (80-100); MPV 9.3 fL (7.6-11.3)
[2022-10-28 14:09] LABS: Protime INR 1.11
[2022-10-28 14:22] LABS: Albumin 4.1 g/dL (3.4-5.0); Bilirubin Direct 0.2 mg/dL (0-0.2); Bilirubin Total 0.8 mg/dL (0.2-1.0); Potassium 3.2 mmol/L (3.5-5.1); Protein, Total 7.5 g/dL (6.4-8.2)
[2022-10-28 14:23] LABS: Troponin High Sensitivity 3.7 pg/mL (<58.9)
--- NOTE | 2022-10-28 14:38 | RAD REPORT ---
EXAM DESCRIPTION: Josey Single View10/28/2022 2:13 pm CLINICAL HISTORY: Chest pain COMPARISON: 2015 FINDINGS: The lungs appear clear of acute infiltrate. The heart is normal size IMPRESSION: No acute abnormalities displayed
--- NOTE | 2022-10-28 15:15 | ER ---
Nurse's Notes [facility] Name: Fahad Tenorio Age: 37 yrs Sex: Male : 1985 Arrival Date: 10/28/2022 Time: 13:26 Bed 23 Private MD: Diagnosis: Anxiety disorder, unspecified Presentation: 10/28 13:38 Chief complaint: Patient states: Chest tightness that began suddenly 30- 45 minutes ss ago. Coronavirus screen: Client denies travel out of the [place] in the last 14 days. Ebola Screen: Patient denies exposure to infectious person. Patient denies travel to an Ebola-affected area in the 21 days before illness onset. Initial Sepsis Screen: Does the patient meet any 2 criteria? No. Patient's initial sepsis screen is negative. Does the patient have a suspected source of infection? No. Patient's initial sepsis screen is negative. Risk Assessment: Do you want to hurt yourself or someone else? Patient reports no desire to harm self or others. Onset of symptoms was October 28, 2022. 13:38 Method Of Arrival: Ambulatory ss 13:38 Acuity: JONATHAN 3 ss Historical: - Allergies: 13:40 NKA; ss - Home Meds: 13:40 None [Active]; ss - PMHx: 13:40 Anxiety; GERD; ss - Immunization history:: Client reports having NOT received the Covid vaccine. - Social history:: Smoking status: Patient reports the use of cigarette tobacco products, smokes one pack cigarettes per day. Screenin:45 [facility] ED Fall Risk Assessment (Adult) History of falling in the last 3 months, eh3 including since admission No falls in past 3 months (0 pts) Confusion or Disorientation No (0 pts) Intoxicated or Sedated No (0 pts) Impaired Gait No (0 pts) Mobility Assist Device Used No (0 pt) Altered Elimination No (0 pt) Score/Fall Risk Level 0 - 2 = Low Risk. Abuse screen: Denies threats or abuse. Denies injuries from another. Nutritional screening: No deficits noted. Tuberculosis screening: No symptoms or risk factors identified. Assessment: 13:45 General: Appears distressed, uncomfortable, Behavior is cooperative, appropriate for 2 age, anxious, restless. Pain: Complains of pain in anterior aspect of left upper chest Pain radiates to left arm Pain currently is 10 out of 10 on a pain scale. Quality of pain is described as sharp, stabbing, tingling, Pain began suddenly, 1 hour ago. Is continuous, Alleviated by nothing. Noted to be agitated, grimacing, guarding, restless. Neuro: Level of Consciousness is awake, alert, obeys commands, Oriented to person, place, time, situation. Cardiovascular: Reports chest pain, lightheadedness, shortness of breath. Cardiovascular: Capillary refill < 3 seconds Patient's skin is warm and dry. Rhythm is regular. Respiratory: Reports shortness of breath labored breathing Airway is patent Respiratory effort is even, labored, Respiratory pattern is regular, symmetrical. GI: No signs and/or symptoms were reported involving the gastrointestinal system. Abdomen is flat, non-distended. : No signs and/or symptoms were reported regarding the genitourinary system. EENT: No signs and/or symptoms were reported regarding the EENT system. Derm: No signs and/or symptoms reported regarding the dermatologic system. Skin is pink, warm \T\ dry. Musculoskeletal: Circulation, motion, and sensation intact. Range of motion: intact in all extremities, Reports weakness in generalized, numbness in left fingertips. 14:00 Reassessment: Patient is alert, oriented x 3, equal unlabored respirations, skin eh3 warm/dry/pink. 14:45 Reassessment: Patient appears in no apparent distress at this time. Patient and/or eh3 family updated on plan of care and expected duration. Pain level reassessed. Patient is alert, oriented x 3, equal unlabored respirations, skin warm/dry/pink. Patient states symptoms have improved. Vital Signs: 13:38 Pulse 132; Resp 24; Temp 98.8(TE); Pulse Ox 99% ; Weight 72.57 kg; Height 5 ft. 9 in. ss (175.26 cm); Pain 9/10; 13:45 BP 163 / 74; Pulse 115; Resp 18; Pulse Ox 99% on R/A; Pain 10/10; eh3 14:00 BP 114 / 68; Pulse 96; Resp 20; Pulse Ox 95% on R/A; eh3 14:15 BP 112 / 72; Pulse 73; Resp 17; Pulse Ox 95% on R/A; eh3 14:45 BP 96 / 67; Pulse 62; Resp 21; Pulse Ox 98% on R/A; eh3 15:15 BP 115 / 75; Pulse 64; Resp 19; Pulse Ox 97% on R/A; eh3 13:38 Body Mass Index 23.63 (72.57 kg, 175.26 cm) Vitals: 13:45 Cardiac Rhythm Assessment Sinus tach. eh3 14:00 Cardiac Rhythm Assessment Sinus rhythm. eh3 ED Course: 13:26 Patient arrived in ED. rg4 13:38 Enrico Medrano MD is Attending Physician. sp3 13:40 Triage completed. ss 13:40 Arm band placed on right wrist. 13:43 Lien Marrero, RN is Primary Nurse. eh3 13:45 Patient has correct armband on for positive identification. Bed in low position. Call 3 light in reach. Side rails up X2. Adult w/ patient. Client placed on continuous cardiac and pulse oximetry monitoring. NIBP monitoring applied. Door closed. Noise minimized. Lights dimmed. Warm blanket given. 13:45 Inserted saline lock: 20 gauge in right antecubital area, using aseptic technique. eh3 Blood collected. Patient maintains SpO2 saturation greater than 95% on room air. 14:14 XRAY Chest (1 view) In Process Unspecified. EDMS 15:39 No provider procedures requiring assistance completed. IV discontinued, intact, eh3 bleeding controlled, No redness/swelling at site. Pressure dressing applied. Administered Medications: No medications were administered Medication: 15:39 VIS not applicable for this client. eh3 Outcome: 15:15 Discharge ordered by . sp3 15:39 Discharged to home ambulatory. eh3 15:39 Condition: stable 15:39 Discharge instructions given to patient, Instructed on discharge instructions, follow up and referral plans. Demonstrated understanding of instructions, follow-up care. 15:46 Patient left the ED. eh3 Signatures: Dispatcher [employer] EDMS Valerie Hernandez RN RN ss Garcia, Rubi rg4 Enrico Medrano MD MD sp3 Lien Marrero RN RN eh3 Corrections: (The following items were deleted from the chart) 14:29 13:45 Cardiovascular: Capillary refill < 3 seconds Patient's skin is warm and dry. eh3 Rhythm is sinus rhythm eh3
--- NOTE | 2022-10-28 15:15 | EDPHYS ---
Physician Documentation [facility] Name: Fahad Tenorio Age: 37 yrs Sex: Male : 1985 Arrival Date: 10/28/2022 Time: 13:26 Bed 23 Private MD: ED Physician Enrico Medrano HPI: 10/28 14:24 This 37 yrs old Male presents to ER via Ambulatory with complaints of Chest Pain, sp3 Shortness Of Breath. 14:24 37-year-old male with history of anxiety and GERD on anxiety medications but weaned sp3 himself off over the last several years presents chief complaint chest pain that started approximately 3 to 4 hours ago slowly worsened coupled with anxiety symptoms and shaking he denies shortness of breath, back pain, headache, fever, URI symptoms, seizure activity, focal neurodeficit, abdominal pain, nausea, vomiting, diarrhea, rash, known sick contacts, travel history, or any other symptoms at this time on ROS.. Historical: - Allergies: 13:40 NKA; ss - Home Meds: 13:40 None [Active]; ss - PMHx: 13:40 Anxiety; GERD; ss - Immunization history:: Client reports having NOT received the Covid vaccine. - Social history:: Smoking status: Patient reports the use of cigarette tobacco products, smokes one pack cigarettes per day. ROS: 14:27 Constitutional: Negative for fever, chills, and weight loss, Eyes: Negative for injury, sp3 pain, redness, and discharge, ENT: Negative for injury, pain, and discharge, Neck: Negative for injury, pain, and swelling, Respiratory: Negative for shortness of breath, cough, wheezing, and pleuritic chest pain, Abdomen/GI: Negative for abdominal pain, nausea, vomiting, diarrhea, and constipation, Back: Negative for injury and pain, MS/Extremity: Negative for injury and deformity, Skin: Negative for injury, rash, and discoloration, Neuro: Negative for headache, weakness, numbness, tingling, and seizure, Psych: Negative for depression, anxiety, suicide ideation, homicidal ideation, and hallucinations, Allergy/Immunology: Negative for hives, rash, and allergies, Endocrine: Negative for neck swelling, polydipsia, polyuria, polyphagia, and marked weight changes. 14:27 All other systems are negative. Exam: 14:27 Constitutional: This is a well developed, well nourished patient who is awake, alert, sp3 and in no acute distress. Head/Face: Normocephalic, atraumatic. Eyes: Pupils equal round and reactive to light, extra-ocular motions intact. Lids and lashes normal. Conjunctiva and sclera are non-icteric and not injected. Cornea within normal limits. Periorbital areas with no swelling, redness, or edema. ENT: Nares patent. No nasal discharge, no septal abnormalities noted. External auditory canals are clear. Oropharynx with no redness, swelling, or masses, exudates, or evidence of obstruction, uvula midline. Mucous membranes moist. Neck: Trachea midline, no thyromegaly or masses palpated, and no cervical lymphadenopathy. Supple, full range of motion without nuchal rigidity, or vertebral point tenderness. No Meningismus. Chest/axilla: Normal chest wall appearance and motion. Nontender with no deformity. No lesions are appreciated. Cardiovascular: Regular rate and rhythm with a normal S1 and S2. No gallops, murmurs, or rubs. Normal PMI, no JVD. No pulse deficits. Respiratory: Lungs have equal breath sounds bilaterally, clear to auscultation and percussion. No rales, rhonchi or wheezes noted. No increased work of breathing, no retractions or nasal flaring. Abdomen/GI: Soft, non-tender, with normal bowel sounds. No distension or tympany. No guarding or rebound. No evidence of tenderness throughout. Back: No spinal tenderness. No costovertebral tenderness. Full range of motion. Skin: Warm, dry with normal turgor. Normal color with no rashes, no lesions, and no evidence of cellulitis. MS/ Extremity: Pulses equal, no cyanosis. Neurovascular intact. Full, normal range of motion. Neuro: Awake and alert, GCS 15, oriented to person, place, time, and situation. Cranial nerves II-XII grossly intact. Motor strength 5/5 in all extremities. Sensory grossly intact. Cerebellar exam normal. Normal gait. Psych: Awake, alert, with orientation to person, place and time. Behavior, mood, and affect are within normal limits. 14:27 ECG was reviewed by the Attending Physician. EKG demonstrates normal sinus rhythm at 70 bpm with normal intervals, normal axis, normal ST/T segments without evidence of acute ischemia and normal QRS as well. Vital Signs: 13:38 Pulse 132; Resp 24; Temp 98.8(TE); Pulse Ox 99% ; Weight 72.57 kg; Height 5 ft. 9 in. ss (175.26 cm); Pain 9/10; 13:45 BP 163 / 74; Pulse 115; Resp 18; Pulse Ox 99% on R/A; Pain 10/10; eh3 14:00 BP 114 / 68; Pulse 96; Resp 20; Pulse Ox 95% on R/A; eh3 14:15 BP 112 / 72; Pulse 73; Resp 17; Pulse Ox 95% on R/A; eh3 14:45 BP 96 / 67; Pulse 62; Resp 21; Pulse Ox 98% on R/A; eh3 15:15 BP 115 / 75; Pulse 64; Resp 19; Pulse Ox 97% on R/A; eh3 13:38 Body Mass Index 23.63 (72.57 kg, 175.26 cm) ss MDM: 13:52 Patient medically screened. sp3 14:28 Data reviewed: vital signs, nurses notes. ED course: 47-year-old male with chest pain sp3 and anxiety. Differential diagnosis includes anxiety, GERD, ACS, among others. Clinically have ruled out pulmonary embolism, thoracic pathology including dissection and aneurysm, pneumonia, pneumothorax, sepsis, shock or any other critical or concerning diagnoses. Patient's initial heart rate was 132 at triage but has already returned to 70 bpm without any intervention. Patient appears to be much more calm than when he first arrived. If work-up is negative, will discharge patient with diagnosis of panic attacks/anxiety and follow-up with a new PCP for primary care. Patient is currently resting comfortably and denies having chest pain on my H\T\P evaluation.. 15:14 ED course: Work-up is negative. I am not highly suspicious for acute coronary syndrome sp3 or any other critical findings at this time. Will discharge patient home with diagnosis anxiety/panic attack.. 10/28 13:52 Order name: Basic Metabolic Panel; Complete Time: 15:13 sp3 10/28 13:52 Order name: CBC with Diff; Complete Time: 15:13 sp3 10/28 13:52 Order name: LFT's; Complete Time: 15:13 sp3 10/28 13:52 Order name: PT-INR; Complete Time: 15:13 sp3 10/28 13:52 Order name: Troponin HS; Complete Time: 15:13 sp3 10/28 13:52 Order name: XRAY Chest (1 view); Complete Time: 15:13 sp3 10/28 13:52 Order name: EKG; Complete Time: 13:53 sp3 10/28 13:52 Order name: Cardiac monitoring; Complete Time: 13:53 sp3 10/28 13:52 Order name: EKG - Nurse/Tech; Complete Time: 14:18 sp3 10/28 13:52 Order name: IV Saline Lock; Complete Time: 13:53 sp3 10/28 13:52 Order name: Labs collected and sent; Complete Time: 13:53 sp3 10/28 13:52 Order name: O2 Per Protocol; Complete Time: 13:53 sp3 10/28 13:52 Order name: O2 Sat Monitoring; Complete Time: 13:53 sp3 Administered Medications: No medications were administered Disposition Summary: 10/28/22 15:15 Discharge Ordered Location: Home sp3 Condition: Stable sp3 Diagnosis - Anxiety disorder, unspecified sp3 Followup: sp3 - With: Private Physician - When: As needed - Reason: Further diagnostic work-up Discharge Instructions: - Discharge Summary Sheet sp3 - Panic Attack sp3 Forms: - Medication Reconciliation Form sp3 - Thank You Letter sp3 - Antibiotic Education sp3 - Prescription Opioid Use sp3 Signatures: Dispatcher [employer] Valerie Eubanks RN RN ss Patel, Setul, MD MD sp3
[2022-10-28 16:05] VITALS: TEMP 98.8
[2022-10-28 16:24] VITALS: BP 115/75; O2SAT 97
== END 2022-10-28 15:46 | disposition home or self-care (01) ==
LOC: ER 13:25
DX: F41.9 Anxiety disorder, unspecified (principal)
CPT/HCPCS: 36415; 71045; 80048; 80076; 84484; 85025; 85610; 93005; 99284